=== PATIENT | female | born 1960 | race Caucasian/White ===

== ENCOUNTER 2023-03-06 15:22 | Outpatient (CLI) | payer SELFPAY | END 2023-03-06 15:23 | disposition home or self-care (01) | LOC: RAD 15:22 | PROVIDERS: ATTEND Family Medicine | DX: G56.02 Carpal tunnel syndrome, left upper limb (principal); M81.0 Age-related osteoporosis without current pathological fracture ==

== ENCOUNTER 2025-05-11 17:38 | Inpatient (IN) | payer OTHER ==
[2025-05-11] MEDS ORDERED: Acetaminophen 500 MG TAB ONE (18:13)
[2025-05-11] MEDS ORDERED: hydrALAZINE 20 MG/ML VIAL SLOW IVP PRN (18:41)
[2025-05-11] MEDS ORDERED: Communication Order-Pharmacy FS SCH (18:41)
[2025-05-11] MEDS ORDERED: niCARdipine 25 MG in Sodium Chloride 0.9% 250 ML 250 ML IVPB PRN (18:41)
[2025-05-11] MEDS ORDERED: Gabapentin 400 MG CAP ONE (20:21)
[2025-05-11] MEDS: Gabapentin 400 MG CAP PO SCH (20:40)
[2025-05-11] MEDS: Rosuvastatin 20 MG TAB PO SCH (23:00)
[2025-05-12 05:49] LABS: #Basophils 0.06 10x3/uL (0.0-0.2); #Eosinophils 0.34 10x3/uL (0.0-0.7); #Monocytes 0.56 10x3/uL (0.11-0.59); #Neutrophils 3.39 10x3/uL (1.40-6.50); %Basophils 0.8 % (0.0-1.0); %Eosinophils 4.6 % (0.0-10.0); %Lymphocytes 40.4 % (21.0-51.0); %Monocytes 7.6 % (0.0-10.0); %Neutrophils 46.2 % (42.0-75.0); Hematocrit 37.6 % (36.0-47.0); Hemoglobin 11.8 g/dL (12.0-16.0); Mean Corpuscular Hemoglobin 27.5 pg (27.0-31.0); Mean Corpuscular Volume 87.6 fL (78.0-98.0); Platelet Count 227 10x3/uL (130-400); Red Blood Cell (RBC) Count 4.29 mill/uL (4.20-5.40); White Blood Cell (WBC) Count 7.35 10x3/uL (4.8-10.8)
[2025-05-12 06:34] LABS: Anion Gap 12 mmol/L (10-20); BUN (Urea Nitrogen) 15 mg/dL (9.8-20.1); Calc. Creatinine Clearance 138 mL/min (70-130); Calcium 9.0 mg/dL (7.8-10.44); Carbon Dioxide 27 mmol/L (23-31); Cardiac Risk 4.1 (Less than 4.5); Chloride 106 mmol/L (98-107); Cholesterol 141 mg/dl (< 200 Desired); Glucose 208 mg/dL (80-115); HDL Cholesterol 34 mg/dL (>60 Neg Risk); LDL Cholesterol, Calculated 77 mg/dL; Potassium 3.9 mmol/L (3.5-5.1); Sodium 141 mmol/L (136-145); Triglycerides 150 mg/dL (Less than 150)
[2025-05-12] MEDS: FLU (Fluarix Triv) 25-26 (6MOS UP)/PF 45 MCG/0.5 ML Syringe IM ONE (07:46)
[2025-05-12] MEDS ORDERED: Acetaminophen 325 MG TAB ONE (08:50)
[2025-05-12] MEDS ORDERED: Pantoprazole 40 MG DR.TAB ONE (08:50)
[2025-05-12] MEDS ORDERED: Insulin Glargine 30 UNITS/0.3 ML VIAL ONE (08:51)
[2025-05-12] MEDS: Acetaminophen 325 MG TAB PO PRN (08:59)
[2025-05-12] MEDS: Insulin Glargine 30 UNITS/0.3 ML VIAL SC SCH ×2 (09:00→20:39)
[2025-05-12] MEDS: Pantoprazole 40 MG DR.TAB PO SCH (09:00)
[2025-05-12] MEDS ORDERED: Gabapentin 400 MG CAP ONE (09:01)
[2025-05-12] MEDS ORDERED: Dextrose 50% Abboject 50 ML SYRINGE SLOW IVP PRN (17:36)
[2025-05-12] MEDS ORDERED: Glucagon 1 MG/ML KIT IM PRN (17:36)
[2025-05-12] MEDS: Gabapentin 400 MG CAP PO SCH (20:39)
[2025-05-12] MEDS: QUEtiapine 25 MG TAB PO SCH (20:40)
[2025-05-12] MEDS: Acetaminophen/Codeine 30-300mg Tablet PO PRN (20:40)
[2025-05-12] MEDS ORDERED: Enoxaparin 40 MG (0.4 mL) SYRINGE SC SCH (21:00)
[2025-05-13 04:39] LABS: #Basophils 0.07 10x3/uL (0.0-0.2); #Eosinophils 0.36 10x3/uL (0.0-0.7); #Monocytes 0.53 10x3/uL (0.11-0.59); #Neutrophils 3.50 10x3/uL (1.40-6.50); %Basophils 0.9 % (0.0-1.0); %Eosinophils 4.6 % (0.0-10.0); %Lymphocytes 42.3 % (21.0-51.0); %Monocytes 6.8 % (0.0-10.0); %Neutrophils 45.1 % (42.0-75.0); Hematocrit 37.6 % (36.0-47.0); Hemoglobin 11.9 g/dL (12.0-16.0); Mean Corpuscular Hemoglobin 27.7 pg (27.0-31.0); Mean Corpuscular Volume 87.4 fL (78.0-98.0); Platelet Count 217 10x3/uL (130-400); Red Blood Cell (RBC) Count 4.30 mill/uL (4.20-5.40); White Blood Cell (WBC) Count 7.77 10x3/uL (4.8-10.8)
[2025-05-13 05:01] LABS: Anion Gap 14 mmol/L (10-20); BUN (Urea Nitrogen) 9 mg/dL (9.8-20.1); Calc. Creatinine Clearance 136 mL/min (70-130); Calcium 9.1 mg/dL (7.8-10.44); Carbon Dioxide 26 mmol/L (23-31); Chloride 107 mmol/L (98-107); Glucose 194 mg/dL (80-115); Potassium 3.7 mmol/L (3.5-5.1); Sodium 143 mmol/L (136-145)
[2025-05-13] MEDS ORDERED: Non-Formulary Item 1 EACH (Buprenorphine Hcl [Belbuca] 300 MCG Film) PO SCH (09:00)
[2025-05-14] MEDS: Famotidine 20 MG TAB PO SCH (08:57)
[2025-05-14] MEDS ORDERED: Pantoprazole 40 MG GRANULES PACKET PO SCH (09:00)
[2025-05-14] MEDS ORDERED: Rosuvastatin 10 MG TAB PO SCH (09:00)
[2025-05-15] MEDS: BuPROPion XL 150 MG ER.TAB PO SCH (09:54)
[2025-05-15] MEDS: Aspirin 81 mg Enteric Coated Tablet PO SCH (09:57)
[2025-05-15 20:14] VITALS: BMI 25.9
[2025-05-16] MEDS ORDERED: Naproxen 500 MG TAB PO PRN (09:52)
[2025-05-16] MEDS: Naproxen 500 MG TAB PO SCH (10:50)
[2025-05-16] MEDS: Acetaminophen 500 MG TAB PO SCH (15:42)
[2025-05-16] MEDS: Insulin Glargine 30 UNITS/0.3 ML VIAL SC SCH (21:53)
[2025-05-17 11:16] VITALS: BP 130/82; TEMP 98.1
[2025-05-17] MEDS: Non-Formulary Item 1 EACH (Rimegepant Sulfate [Nurtec Odt] 75 MG Tab.Rapdis) PO SCH (18:55)
== END 2025-05-17 15:45 | disposition home or self-care (01) | DRG 65 ==
LOC: ERS 17:38 → ERHOLD 18:27 → 2SE 05-12 19:49
PROVIDERS: ADMIT Internal Medicine; ATTEND Hospitalist
DX: I63.9 Cerebral infarction, unspecified (principal); G81.94 Hemiplegia, unspecified affecting left nondominant side; Z92.82 Status post administration of tPA (rtPA) in a different facility within the last 24 hours prior to admission to current facility; E11.9 Type 2 diabetes mellitus without complications; E78.5 Hyperlipidemia, unspecified; I10 Essential (primary) hypertension; R29.706 NIHSS score 6; F32.A Depression, unspecified; R29.90 Unspecified symptoms and signs involving the nervous system; G43.409 Hemiplegic migraine, not intractable, without status migrainosus; R47.81 Slurred speech; I25.10 Atherosclerotic heart disease of native coronary artery without angina pectoris; Z90.49 Acquired absence of other specified parts of digestive tract; Z98.891 History of uterine scar from previous surgery; Z87.891 Personal history of nicotine dependence; Z83.3 Family history of diabetes mellitus; Z79.899 Other long term (current) drug therapy; Z85.3 Personal history of malignant neoplasm of breast; Z79.84 Long term (current) use of oral hypoglycemic drugs
CPT/HCPCS: 36415; 36416; 70450; 70551; 80048; 80061; 83036; 84443; 84484; 85025; 93306; 93880; J1815